=== PATIENT | male | born 1980 | race Caucasian/White ===

== ENCOUNTER 2019-03-02 17:51 | Inpatient (IN) | payer OTHER | END 2019-03-07 14:43 | disposition home or self-care (01) | LOC: YASAS 17:51 → Y6N 21:16 ==

== ENCOUNTER 2019-03-07 15:14 | Inpatient (IN) | payer OTHER ==
[2019-03-07] MEDS ORDERED: MENTHOL/PHENOL 1 EACH UD MM PRN (15:47)
[2019-03-07] MEDS ORDERED: MAGNESIUM CITRATE 300 ML BOTTLE PO PRN (15:47)
[2019-03-07] MEDS ORDERED: P-EPHED 60MG/TRIPROLIDI 2.5MG TABLET PO PRN (15:47)
[2019-03-07] MEDS ORDERED: ACETAMINOPHEN 325 MG TABLET (FP) PO PRN (15:47)
[2019-03-07] MEDS ORDERED: guaiFENesin 200 MG/10 ML 10 ML UNIT-DOSE CUPS PO PRN (15:47)
[2019-03-07] MEDS ORDERED: LOPERAMIDE HCL 2 MG CAPSULE PO PRN (15:47)
[2019-03-07] MEDS ORDERED: MAG HYDROX/AL HYDROX/SIMETH 30 ML UNIT-DOSE CUP PO PRN (15:47)
--- NOTE | 2019-03-07 15:50 | HP ---
YAN[facility] KENDALL Rehab Assess/Revision - Admission History Admitted to Rehab from: [facility] Date of Admission to Rehab: 03/07/2019 - Vital signs Vital Signs: NOTED; STABLE. - Findings Detox History & Physical reviewed: Yes Concur with findings: Yes Comments/Additional Findings: PATIENT'S MEDICAL / MEDICATION HISTORY REVIEWED PRIOR TO DISCHARGE FROM DETOX UNIT. PATIENT HAD CXR DONE EARLIER IN AFTERNOON TODAY FOR POSITIVE QFT/TB TEST RESULT NOTED WHILE ADMTITED FOR DETOX. RESULTS OF CXR PENDING AT THIS TIME. PATIENT WAS DISCHARGED FROM DETOX UNIT TO BE TAKEN OVER TO REHAB UNIT IN STABLE MEDICAL CONDITION. Inpatient Rehab Admission - Rehab Decision to Admit Inpatient rehab admission?: Yes - Initial Determination Are CD services needed?: Yes Free of communicable disease: Yes Not in need of hospitalization: Yes - Rehab Admission Criteria Previous failed treatment: Yes Poor recovery environment: Yes Comorbidities: No Lacks judgement: No Patient is meeting Inpatient Rehab admission criteria:: Yes
[2019-03-07] MEDS: NICOTINE POLACRILEX 2 MG GUM BUC PRN (16:50)
[2019-03-07] MEDS ORDERED: NICOTINE 21 MG/24 HOURS TOPICAL PATCH TD ONE (17:30)
[2019-03-07] MEDS: THIAMINE HCL 100 MG TABLET (FP) PO SCH (21:43)
[2019-03-07] MEDS: MELATONIN 5 MG TABLETS PO PRN (21:44)
[2019-03-08] MEDS: NICOTINE 21 MG/24 HOURS TOPICAL PATCH TD SCH (10:22)
[2019-03-08] MEDS: PRENATAL VITAMINS W/ FOLIC ACID TABLET (FP) PO SCH (10:22)
[2019-03-08] MEDS: MAGNESIUM HYDROX 2400MG/30ML ORAL SUSPENSION 30 ML CUP PO PRN ×2 (13:20→17:14)
[2019-03-08] MEDS: IBUPROFEN 400 MG TABLET (FP) PO PRN (17:14)
[2019-03-08] MEDS: MELATONIN 5 MG TABLETS PO PRN (21:20)
[2019-03-08] MEDS: THIAMINE HCL 100 MG TABLET (FP) PO SCH (21:20)
[2019-03-09] MEDS: PRENATAL VITAMINS W/ FOLIC ACID TABLET (FP) PO SCH (10:05)
[2019-03-09] MEDS: NICOTINE 21 MG/24 HOURS TOPICAL PATCH TD SCH (10:06)
[2019-03-09] MEDS: MELATONIN 5 MG TABLETS PO PRN (21:41)
[2019-03-09] MEDS: THIAMINE HCL 100 MG TABLET (FP) PO SCH (21:41)
[2019-03-10] MEDS: PRENATAL VITAMINS W/ FOLIC ACID TABLET (FP) PO SCH (09:53)
[2019-03-10] MEDS: NICOTINE 21 MG/24 HOURS TOPICAL PATCH TD SCH (09:53)
[2019-03-10] MEDS: NICOTINE POLACRILEX 2 MG GUM BUC PRN ×2 (09:55→16:42)
[2019-03-10] MEDS: THIAMINE HCL 100 MG TABLET (FP) PO SCH (21:56)
[2019-03-10] MEDS: MELATONIN 5 MG TABLETS PO PRN (21:56)
--- NOTE | 2019-03-11 09:07 | PN ---
[facility] Progress Note Note: Patient c/o sleep disturbance and difficulty falling asleep. Patient currently in rehab for ETOH/Opiod dependence. Vital Signs Temperature 98.2 F 03/11/19 07:27 Pulse Rate 88 03/11/19 07:27 Respiratory Rate 18 03/11/19 07:27 Blood Pressure 118/70 03/11/19 07:27 O2 Sat by Pulse Oximetry (%) Laboratory Tests 03/08/19 03/08/19 06:00 07:00 HIV 1&2 Ag/Ab, 4th Gen Non reactive HIV 1&2 Antibody Screen Cancelled HIV P24 Antigen Cancelled PE alert and oriented x 3 skin warm and dry cranial nerves 1-x11 grossly intact ext full rom, amb ad diandra A/P: sleep disturbance r/t substance use will start trazodone 50mg hs sleep hygiene monitor clinically
[2019-03-11] MEDS: NICOTINE 21 MG/24 HOURS TOPICAL PATCH TD SCH (10:44)
[2019-03-11] MEDS: PRENATAL VITAMINS W/ FOLIC ACID TABLET (FP) PO SCH (10:44)
[2019-03-11] MEDS: NICOTINE POLACRILEX 2 MG GUM BUC PRN (10:44)
[2019-03-11] MEDS: CYCLOBENZAPRINE HCL 10 MG TABLET (FP) PO SCH ×2 (14:48→22:02)
[2019-03-11] MEDS: THIAMINE HCL 100 MG TABLET (FP) PO SCH (22:02)
[2019-03-11] MEDS: traZODone HCL 50 MG TABLET (FP) PO SCH (22:03)
[2019-03-12] MEDS: CYCLOBENZAPRINE HCL 10 MG TABLET (FP) PO SCH ×3 (06:49→21:09)
[2019-03-12] MEDS: PRENATAL VITAMINS W/ FOLIC ACID TABLET (FP) PO SCH (09:09)
[2019-03-12] MEDS: NICOTINE 21 MG/24 HOURS TOPICAL PATCH TD SCH (09:09)
[2019-03-12] MEDS: THIAMINE HCL 100 MG TABLET (FP) PO SCH (21:09)
[2019-03-12] MEDS: traZODone HCL 50 MG TABLET (FP) PO SCH (21:09)
[2019-03-13] MEDS: CYCLOBENZAPRINE HCL 10 MG TABLET (FP) PO SCH ×3 (06:33→21:45)
[2019-03-13] MEDS: PRENATAL VITAMINS W/ FOLIC ACID TABLET (FP) PO SCH (08:59)
[2019-03-13] MEDS: NICOTINE 21 MG/24 HOURS TOPICAL PATCH TD SCH (09:00)
[2019-03-13] MEDS: NICOTINE POLACRILEX 2 MG GUM BUC PRN ×2 (13:38→19:07)
[2019-03-13] MEDS: IBUPROFEN 400 MG TABLET (FP) PO PRN (19:05)
[2019-03-13] MEDS: THIAMINE HCL 100 MG TABLET (FP) PO SCH (21:45)
[2019-03-13] MEDS: traZODone HCL 50 MG TABLET (FP) PO SCH (21:45)
[2019-03-13] MEDS: MELATONIN 5 MG TABLETS PO PRN (21:45)
[2019-03-14] MEDS: CYCLOBENZAPRINE HCL 10 MG TABLET (FP) PO SCH ×3 (06:38→21:04)
--- NOTE | 2019-03-14 10:17 | PN ---
[facility] Progress Note Note: PATIENT TREATED FOR INSOMNIA WITH TRAZODONE 50MG HS. PATIENT STATES HE CONTINUES TO HAVE DIFFICULTY SLEEPING. STATES HE HAD EFFECTIVE TREATMENT WITH SEROQUEL. WILL REFER TO PSYCH AT THIS TIME. Vital Signs Temperature 96.6 F L 03/14/19 07:45 Pulse Rate 83 03/14/19 07:45 Respiratory Rate 18 03/14/19 07:45 Blood Pressure 120/72 03/14/19 07:45 O2 Sat by Pulse Oximetry (%) Laboratory Tests 03/08/19 03/08/19 06:00 07:00 HIV 1&2 Ag/Ab, 4th Gen Non reactive HIV 1&2 Antibody Screen Cancelled HIV P24 Antigen Cancelled
[2019-03-14] MEDS: NICOTINE 21 MG/24 HOURS TOPICAL PATCH TD SCH (10:53)
[2019-03-14] MEDS: PRENATAL VITAMINS W/ FOLIC ACID TABLET (FP) PO SCH (10:53)
[2019-03-14] MEDS: IBUPROFEN 600 MG TABLET (FP) PO PRN ×2 (13:34→18:35)
--- NOTE | 2019-03-14 17:11 | CONSULT ---
[facility] Psychiatric Consult - Data Date of interview: 03/14/19 Admission source: Transfer from [address] [place] [address]. Identifying data: Day 7 of rehabilitation for this 38 y/o male ( completed detoxification at [address] [place] [address]). Patient is , a father of three, homeless, unemployed. Undisclosed means of income. Psychiatric consult was requested to address patient's complaint of insomnia. Mr Horowitz is requesting seroquel in lieu of trazodone. Substance Abuse History: Confirmed by patient in this interview. Details in current [facility] report as follows : Smoking history: Current every day smoker. Have you smoked in the past 12 months: Yes. Aproximately how many cigarettes per day: 20. Cigars Per Day: 0. Hx Chewing Tobacco Use: No. Initiated information on smoking cessation: Yes. 'Breaking Loose' booklet given: . - Substance & Tx. History. Hx Alcohol Use: Yes. Hx Substance Use: Yes. Substance Use Type: Alcohol, Cocaine, Heroin. Hx Substance Use Treatment: Yes ( [facility]). - Substances abused. Heroin. Substance route: Inhalation ( INTERMIITENT IVDU). Frequency: Daily. Amount used: 15 bags- 20 BAGS. Age of first use: 38. Date of last use: 03/02/19. Crack. Substance route: Smoking. Frequency: Daily. Amount used: 200 hundred dollars. Age of first use : 22. Date of last use: 03/02/19. Alcohol. Substance route: Oral. Frequency: Daily. Amount used: 6 packs of 24 ounces of beers and 1 pt. liquor. Age of first use: 14. Date of last use: 03/02/19 Medical History: Good physical health as per self-report. Psychiatric History: History of treatment for ADHD during childhood. Used to be on ritalin. Patient denies history of psychiatric hospitalizations. No current OPD care (past follow-up at the [facility] in [facility]). Mr Horowitz denies history of suicide attempts. Physical/Sexual Abuse/Trauma History: Patient declines to discuss this domain. Additional Comment: Urine drug screen results: MARKIE-Cocaine, MOP-Opiates, BZO- Benzodiazepines. Noted on admission. Mental Status Exam - Mental Status Exam Alert and Oriented to: Time, Place, Person Cognitive Function: Good Patient Appearance: Well Groomed Mood: Hopeful, Euthymic Affect: Appropriate, Normal Range Patient Behavior: Cooperative Speech Pattern: Clear, Appropriate Voice Loudness: Normal Thought Process: Intact, Goal Oriented Thought Disorder: Not Present Hallucinations: Denies Suicidal Ideation: Denies Homicidal Ideation: Denies Insight/Judgement: Fair Sleep: Poorly, Difficulty falling asleep Appetite: Good Muscle strength/Tone: Normal Gait/Station: Normal Psychiatric Findings - Problem List ([place] 1, 2,3) (1) Alcohol dependence Current Visit: Yes Status: Chronic (2) Opioid dependence Current Visit: Yes Status: Chronic (3) Cocaine abuse, uncomplicated Current Visit: Yes Status: Chronic (4) Nicotine dependence Current Visit: Yes Status: Chronic Qualifiers: Nicotine product type: cigarettes Substance use status: uncomplicated Qualified Code(s): F17.210 - Nicotine dependence, cigarettes, uncomplicated (5) History of ADHD Current Visit: Yes Status: Chronic (6) Insomnia Current Visit: Yes Status: Chronic - Initial Treatment Plan Initial Treatment Plan: Psychoeducation. Sleep hygiene. Seroquel is started at the dose of 150 mg po hs (patient indicates that he used to be on 300 mg/hs while in [facility]). Side effects/benefits discussed with the patient. Gave consent ( verbal) to MD. Mejias.
[2019-03-14] MEDS: THIAMINE HCL 100 MG TABLET (FP) PO SCH (21:04)
[2019-03-14] MEDS: QUEtiapine FUMARATE 50 MG TABLET PO SCH (21:05)
[2019-03-14] MEDS: NICOTINE POLACRILEX 2 MG GUM BUC PRN (21:06)
[2019-03-14] MEDS: MELATONIN 5 MG TABLETS PO PRN (21:06)
[2019-03-15] MEDS: IBUPROFEN 600 MG TABLET (FP) PO PRN ×4 (01:08→22:08)
[2019-03-15] MEDS: CYCLOBENZAPRINE HCL 10 MG TABLET (FP) PO SCH ×3 (06:09→22:07)
[2019-03-15] MEDS: PRENATAL VITAMINS W/ FOLIC ACID TABLET (FP) PO SCH (09:51)
[2019-03-15] MEDS: NICOTINE 21 MG/24 HOURS TOPICAL PATCH TD SCH (10:09)
[2019-03-15] MEDS: NICOTINE POLACRILEX 2 MG GUM BUC PRN (15:52)
[2019-03-15] MEDS: THIAMINE HCL 100 MG TABLET (FP) PO SCH (22:06)
[2019-03-15] MEDS: MELATONIN 5 MG TABLETS PO PRN (22:06)
[2019-03-15] MEDS: QUEtiapine FUMARATE 50 MG TABLET PO SCH (22:07)
[2019-03-16] MEDS: CYCLOBENZAPRINE HCL 10 MG TABLET (FP) PO SCH ×3 (06:34→21:58)
[2019-03-16] MEDS: IBUPROFEN 600 MG TABLET (FP) PO PRN ×2 (06:34→14:06)
[2019-03-16] MEDS ORDERED: PT OWN MED DRAWER 7, Y5N ONE (08:57)
[2019-03-16] MEDS: PRENATAL VITAMINS W/ FOLIC ACID TABLET (FP) PO SCH (09:51)
[2019-03-16] MEDS: NICOTINE 21 MG/24 HOURS TOPICAL PATCH TD SCH (09:51)
--- NOTE | 2019-03-16 11:16 | PN ---
[facility] Progress Note Note: Pt c/o back pain- on flexeril/motrin/tylenol. d/w pt exercises to release the back, warm compresses and hot showers. Pt agrees to try this
--- NOTE | 2019-03-16 18:16 | PN ---
[facility] Progress Note Note: Psychiatry Attending's note : Met with patient. Mr Lor reports refractory insomnia. Insists on having seroquel dose increased. Seroquel 200 mg po hs. Patient agrees.
[2019-03-16] MEDS: THIAMINE HCL 100 MG TABLET (FP) PO SCH (21:58)
[2019-03-16] MEDS: MELATONIN 5 MG TABLETS PO PRN (21:59)
[2019-03-16] MEDS: QUEtiapine FUMARATE 200 MG TABLET PO SCH (21:59)
[2019-03-16] MEDS: NICOTINE POLACRILEX 2 MG GUM BUC PRN (22:01)
[2019-03-17] MEDS: IBUPROFEN 600 MG TABLET (FP) PO PRN ×3 (00:10→21:09)
[2019-03-17] MEDS: CYCLOBENZAPRINE HCL 10 MG TABLET (FP) PO SCH ×3 (06:25→21:07)
[2019-03-17] MEDS: PRENATAL VITAMINS W/ FOLIC ACID TABLET (FP) PO SCH (09:52)
[2019-03-17] MEDS: NICOTINE 21 MG/24 HOURS TOPICAL PATCH TD SCH (09:54)
--- NOTE | 2019-03-17 12:07 | PN ---
[facility] Progress Note (SOAP) Subjective: Pt is a 38 y/o male admitted to rehab for kem and scheduled to discharge tomorrow after completing treatment. Pt has been referred to [facility] on [address], [place] for CD aftercare. Pt reports he goes to [facility] for medical care. Pt states no specific primary care provider. Pt denies past MHX. Pt reports he is undomiciled and will be going to the half-way today. Denies s/h/i. Objective: 03/17/19 12:02 Vital Signs - 24 hr 03/17/19 03/17/19 03/17/19 00:30 03:30 07:19 Temperature 97.8 F Pulse Rate 67 Respiratory 18 18 18 Rate Blood Pressure 135/83 Laboratory Tests 03/08/19 03/08/19 06:00 07:00 HIV 1&2 Ag/Ab, 4th Gen Non reactive HIV 1&2 Antibody Screen Cancelled HIV P24 Antigen Cancelled Home Medications Medication Instructions Recorded NK [No Known Home Medication] 03/02/19 General:Alert o x 3. NAD. Cardiac:s1 s2, rrr Lungs:cta,rrr Abdomen:Soft,+bs,nt,nd Extremities/Skin:No edema; wnl Assessment: 03/17/19 14:34 Medically stable [facility] Inpatient Services Medical - Diagnosis (1) Alcohol dependence Qualifiers: Substance use status: uncomplicated Qualified Code(s): F10.20 - Alcohol dependence, uncomplicated Current Visit: Yes Status: Chronic (2) Cocaine abuse, uncomplicated Current Visit: Yes Status: Chronic (3) Nicotine dependence Qualifiers: Nicotine product type: cigarettes Substance use status: uncomplicated Qualified Code(s): F17.210 - Nicotine dependence, cigarettes, uncomplicated Current Visit: Yes Status: Chronic (4) Opioid dependence Qualifiers: Substance use status: uncomplicated Qualified Code(s): F11.20 - Opioid dependence, uncomplicated Current Visit: Yes Status: Chronic (5) IVDU (intravenous drug user) Current Visit: No Status: Acute (6) Homeless Current Visit: Yes Status: Chronic Initialized on 03/17/19 14:23 - END OF NOTE Plan: D/c pt tomorrow Follow up with CD aftercare at [facility] as recommended. Follow up with primary care with [place], [place] in 1-2 weeks after discharge.
--- NOTE | 2019-03-17 15:21 | PN ---
[facility] Progress Note Note: Patient is scheduled for discharge tomorrow. Script for 30 days supply of Seroquel 200 mg/hs will be electronically transmitted to [facility] at [address] [place], [place] [id number]
[2019-03-17] MEDS: MELATONIN 5 MG TABLETS PO PRN (21:07)
[2019-03-17] MEDS: QUEtiapine FUMARATE 200 MG TABLET PO SCH (21:07)
[2019-03-17] MEDS: THIAMINE HCL 100 MG TABLET (FP) PO SCH (21:07)
[2019-03-18] MEDS: IBUPROFEN 600 MG TABLET (FP) PO PRN (06:24)
[2019-03-18] MEDS: CYCLOBENZAPRINE HCL 10 MG TABLET (FP) PO SCH (06:25)
[2019-03-18 08:11] VITALS: BP 125/74; PULSE 80; TEMP 98.1
== END 2019-03-18 08:25 | disposition home or self-care (01) | DRG 772 ==
LOC: YASAS 15:14 → Y3W 15:15
PROVIDERS: ADMIT Neuromusculoskeletal Medicine & OMM; ATTEND Neuromusculoskeletal Medicine & OMM
PROC: HZ42ZZZ Group Counseling for Substance Abuse Treatment, Cognitive-Behavioral (ICD-10-PCS; principal; 2019-03-07)
DX: F11.20 Opioid dependence, uncomplicated (principal); F10.20 Alcohol dependence, uncomplicated; F14.10 Cocaine abuse, uncomplicated; F17.210 Nicotine dependence, cigarettes, uncomplicated; G47.00 Insomnia, unspecified; Z59.0 Homelessness
CPT/HCPCS: 36415; 87389

== ENCOUNTER 2019-05-04 17:07 | Inpatient (IN) | payer OTHER ==
[2019-05-04 23:00] VITALS: BMI 25.4
--- NOTE | 2019-05-05 01:56 | HP ---
COWS - Scale Resting Pulse: 0= [place] 80 or Below Sweatin=Flushed/Facial Moisture Restless Observation: 1= Difficult to Sit Still Pupil Size: 1= Pupils >than Normal Bone or Joint Aches: 4=Acute Joint/Muscle Pain Runny Nose/ Eye Tearin= Nasal Congestion GI Upset > 30mins: 2= Nausea/Diarrhea Tremor Observation: 2= Slight Tremor Visible Yawning Observation: 1= 1-2x During Session Anxiety or Irritability: 0= None Goose Flesh Skin: 3=Piloerection COWS Score: 17 CIWA Score Nausea/Vomitin-Mild Nausea/No Vomiting Muscle Tremors: 3 Anxiety: 3 Agitation: 3 Paroxysmal Sweats: 3 Orientation: 0-Oriented Tacttile Disturbances: 0-None Auditory Disturbances: 0-None Visual Disturbances: 0-None Headache: 3-Moderate CIWA-Ar Total Score: 16 - Admission Criteria OASAS Guidelines: Admission for Medically Managed Detox: Requires at least one of the followin. CIWA greater than 12 2. Seizures within the past 24 hours 3. Delirium tremens within the past 24 hours 4. Hallucinations within the past 24 hours 5. Acute intervention needed for co occurring medical disorder 6. Acute intervention needed for co occurring psychiatric disorder 7. Severe withdrawal that cannot be handled at a lower level of care (continued vomiting, continued diarrhea, abnormal vital signs) requiring intravenous medication and/or fluids 8. Admitting History and Physical - Smoking History Smoking history: Current every day smoker Have you smoked in the past 12 months: Yes Aproximately how many cigarettes per day: 20 - Alcohol/Substance Use Hx Alcohol Use: Yes Admission [facility] Chief Complaint: Heroin and alcohol withdrawal symptoms Allergies/Adverse Reactions: Allergies Allergy/AdvReac Type Severity Reaction Status Date / Time No Known Allergies Allergy Verified 05/04/19 23:09 History of Present Illness: 38 years old male with heroin and alcohol withdrawal symptoms is seeking admission to detox. Patient reports daily use of heroin since October this year. He has been to detox but relapsed. Last use was 05/04/2019. Denies suicidal ideation at this time. Patient is unemployed and homeless. Exam Limitations: Clinical Condition - Ebola screening Have you traveled outside of the country in the last 21 days: No (N) Have you had contact with anyone from an Ebola affected area: No Do you have a fever: No - Review of Systems Constitutional: Chills, Loss of Appetite, Malaise, Night Sweats, Changes in sleep EENT: reports: No Symptoms Reported, Nose Congestion Respiratory: reports: No Symptoms reported Cardiac: reports: No Symptoms Reported GI: reports: Poor Appetite, Poor Fluid Intake, Vomiting, Abdominal cramping : reports: No Symptoms Reported Musculoskeletal: reports: Back Pain, Muscle Pain Integumentary: reports: Dryness, Flushing Neuro: reports: Tremors Endocrine: reports: No Symptoms Reported Hematology: reports: No Symptoms Reported Psychiatric: reports: Anxious Other Systems: Reviewed and Negative Patient History - Patient Medical History Hx Anemia: No Hx Asthma: No Hx Chronic Obstructive Pulmonary Disease (COPD): No Hx Cancer: No Hx Cardiac Disorders: No Hx Congestive Heart Failure: No Hx Hypertension: No Hx Hypercholesterolemia: No Hx Pacemaker: No HX Cerebrovascular Accident: No Hx Seizures: No Hx Dementia: No Hx Diabetes: No Hx Gastrointestinal Disorders: No Hx Liver Disease: No Hx Genitourinary Disorders: No Hx Sexually Transmitted Disorders: No Hx Renal Disease (ESRD): No Hx Thyroid Disease: No Hx Human Immunodeficiency Virus (HIV): No Hx Hepatitis C: No Hx Depression: No Hx Suicide Attempt: No Hx Bipolar Disorder: No Hx Schizophrenia: No - Patient Surgical History Past Surgical History: No Hx Neurologic Surgery: No Hx Cataract Extraction: No Hx Cardiac Surgery: No Hx Lung Surgery: No Hx Abdominal Surgery: No Hx Appendectomy: No Hx Cholecystectomy: No Hx Genitourinary Surgery: No Hx Orthopedic Surgery: No Anesthesia Reaction: No - PPD History Previous Implant?: No Implanted On Prior [facility] Admission?: No PPD to be Administered?: No - Reproductive History Patient is a Female of Child Bearing Age (11 -55 yrs old): No (male) - Smoking Cessation Smoking history: Current every day smoker Have you smoked in the past 12 months: Yes Aproximately how many cigarettes per day: 20 Cigars Per Day: 0 Hx Chewing Tobacco Use: No Initiated information on smoking cessation: Yes 'Breaking Loose' booklet given: 05/05/19 - Substance & Tx. History Hx Alcohol Use: Yes Hx Substance Use: Yes Substance Use Type: Alcohol, Cocaine, Heroin, Marijuana, Opiates Hx Substance Use Treatment: Yes ([facility]) - Substances abused Heroin Substance route: Inhalation Frequency: Daily Amount used: 15 bags- 20 BAGS Age of first use: 38 Date of last use: 05/04/19 Crack Substance route: Smoking Frequency: Daily Amount used: 200 hundred dollars Age of first use: 22 Date of last use: 05/04/19 Alcohol Substance route: Oral Frequency: Daily Amount used: 6 packs of 24 ounces of beers and 1 pt. liquor Age of first use: 14 Date of last use: 05/04/19 Admission Physical Exam [facility] - Vital Signs Vital Signs: Vital Signs - 24 hr 05/04/19 22:53 Temperature 97.6 F Pulse Rate 80 Respiratory 18 Rate Blood Pressure 133/66 - Physical General Appearance: Yes: Moderate Distress, Tremorous, Irritable, Anxious HEENTM: Yes: Within Normal Limits Respiratory: Yes: Lungs Clear, Normal Breath Sounds, No Respiratory Distress Neck: Yes: Supple Breast: Yes: Breast Exam Deferred Cardiology: Yes: Regular Rhythm, Regular Rate Abdominal: Yes: Normal Bowel Sounds Genitourinary: Yes: Within Normal Limits Back: Yes: Normal Inspection Musculoskeletal: Yes: Within Normal Limits Extremities: Yes: Normal Inspection Neurological: Yes: Alert, Normal Mood/Affect Integumentary: Yes: Warm Lymphatic: Yes: Within Normal Limits - Diagnostic (1) Alcohol dependence with uncomplicated withdrawal Current Visit: Yes Status: Chronic (2) Nicotine dependence Current Visit: Yes Status: Chronic Qualifiers: Nicotine product type: cigarettes Substance use status: uncomplicated Qualified Code(s): F17.210 - Nicotine dependence, cigarettes, uncomplicated (3) Opioid dependence with withdrawal Current Visit: Yes Status: Acute (4) Marijuana dependence Current Visit: Yes Status: Acute (5) Cocaine dependence Current Visit: Yes Status: Acute (6) IVDU (intravenous drug user) Current Visit: No Status: Acute (7) Homeless Current Visit: No Status: Chronic Cleared for Admission [facility] - Detox or Rehab [facility] Level of Care: Medically Managed Detox Regimen/Protocol: Methadone/Librium Breathalyzer - Breathalyzer Breathalyzer: 0 Urine Drug Screen - Test Device Lot number: [id number] Expiration date: 11/30/20 - Control Is test valid?: Yes - Results Drug screen NEGATIVE: No Urine drug screen results: MARKIE-Cocaine, MOP-Opiates, BZO-Benzodiazepines Inpatient Rehab Admission - Rehab Decision to Admit Inpatient rehab admission?: No
[2019-05-05] MEDS ORDERED: MAGNESIUM CITRATE 300 ML BOTTLE PO PRN (02:16)
[2019-05-05] MEDS ORDERED: METHADONE HCL 10 MG TABLET (FOR DETOX USE ONLY) PO ONE (02:16)
[2019-05-05] MEDS ORDERED: MENTHOL/PHENOL 1 EACH UD MM PRN (02:16)
[2019-05-05] MEDS ORDERED: BISMUTH SUBSALICYLATE 524 MG/30 ML UD PO PRN (02:16)
[2019-05-05] MEDS ORDERED: MAGNESIUM HYDROX 2400MG/30ML ORAL SUSPENSION 30 ML CUP PO PRN (02:16)
[2019-05-05] MEDS ORDERED: ACETAMINOPHEN 325 MG TABLET (FP) PO PRN (02:16)
[2019-05-05] MEDS ORDERED: MAG HYDROX/AL HYDROX/SIMETH 30 ML UNIT-DOSE CUP PO PRN (02:16)
[2019-05-05] MEDS: chlordiazePOXIDE HCL 25 MG CAPSULE PO SCH ×4 (07:22→22:31)
[2019-05-05] MEDS: NICOTINE 14 MG/24 HOURS TOPICAL PATCH TD SCH (11:14)
[2019-05-05] MEDS: NICOTINE POLACRILEX 2 MG GUM BUC PRN (11:15)
[2019-05-05] MEDS: PRENATAL VITAMINS W/ FOLIC ACID TABLET (FP) PO SCH (11:15)
[2019-05-05] MEDS: hydrOXYzine PAMOATE 25 MG CAPSULE (FP) PO PRN (11:18)
[2019-05-05] MEDS: METHOCARBAMOL 500 MG TABLET PO PRN (11:18)
--- NOTE | 2019-05-05 13:38 | PN ---
[facility] CIWA - CIWA Score Nausea/Vomitin-No Nausea/No Vomiting Muscle Tremors: 3 Anxiety: 3 Agitation: 3 Paroxysmal Sweats: 3 Orientation: 0-Oriented Tacttile Disturbances: 0-None Auditory Disturbances: 0-None Visual Disturbances: 0-None Headache: 0-None Present CIWA-Ar Total Score: 12 [facility] COWS - Scale Resting Pulse: 0= [place] 80 or Below Sweatin= Chills/Flushing Restless Observation: 1= Difficult to Sit Still Pupil Size: 0= Normal to Room Light Bone or Joint Aches: 1= Mild Discomfort Runny Nose/ Eye Tearin= Runny Nose/Eyes GI Upset > 30mins: 0= None Tremor Observation of Outstretched Hands: 2= Slight Tremor Visible Yawning Observation: 2= >3x During Session Anxiety or Irritability: 2=Irritable/Anxious Goose Flesh Skin: 0=Smooth Skin COWS Score: 11 [facility] Progress Note (SOAP) Subjective: sweats shakes body aches irritable agitation tired Objective: 05/05/19 13:37 Vital Signs Temperature 97.5 F L 05/05/19 09:59 Pulse Rate 53 L 05/05/19 09:59 Respiratory Rate 18 05/05/19 09:59 Blood Pressure 107/56 L 05/05/19 09:59 O2 Sat by Pulse Oximetry (%) labs pending aaox3 ambulating no acute distress Assessment: 05/05/19 13:38 withdrawals sx Plan: continue detox pending labs
--- NOTE | 2019-05-05 14:36 | EKG ---
Test Reason : Blood Pressure : / mmHG Vent. Rate : 066 BPM Atrial Rate : 066 BPM P-R Int : 128 ms QRS Dur : 100 ms QT Int : 414 ms P-R-T Axes : 023 -07 -02 degrees QTc Int : 434 ms NORMAL SINUS RHYTHM WITH SINUS ARRHYTHMIA MODERATE VOLTAGE CRITERIA FOR LVH, MAY BE NORMAL VARIANT INFERIOR INFARCT , AGE UNDETERMINED ABNORMAL ECG WHEN COMPARED WITH ECG OF 02-MAR-2019 21:27, INFERIOR INFARCT IS NOW PRESENT INVERTED T WAVES HAVE REPLACED NONSPECIFIC T WAVE ABNORMALITY IN INFERIOR LEADS Confirmed by ASAF KENDALL, MAL ([id number]) on 05/05/2019 2:35:54 PM Referred By: Confirmed By:MAL RON MD
[2019-05-05] MEDS: cloNIDine HCL 0.1 MG TABLET PO PRN (20:06)
[2019-05-05] MEDS: chlordiazePOXIDE HCL 25 MG CAPSULE PO PRN (20:06)
[2019-05-05] MEDS: THIAMINE HCL 100 MG TABLET (FP) PO SCH (22:31)
[2019-05-05] MEDS: MELATONIN 5 MG TABLETS PO PRN (22:31)
[2019-05-06] MEDS: chlordiazePOXIDE HCL 25 MG CAPSULE PO SCH ×4 (06:57→23:30)
[2019-05-06] MEDS: METHOCARBAMOL 500 MG TABLET PO PRN ×2 (06:57→15:21)
[2019-05-06] MEDS: NICOTINE POLACRILEX 2 MG GUM BUC PRN ×2 (06:57→10:17)
[2019-05-06] MEDS ORDERED: METHADONE HCL 10 MG TABLET (FOR DETOX USE ONLY) ONE (09:17)
[2019-05-06] MEDS ORDERED: METHADONE HCL 5 MG TABLET (FOR DETOX USE ONLY) ONE (09:18)
[2019-05-06] MEDS ORDERED: METHADONE (DETOX) 20 MG, METHADONE (DETOX) 5 MG PO ONE (10:00)
[2019-05-06] MEDS: NICOTINE 14 MG/24 HOURS TOPICAL PATCH TD SCH (10:16)
[2019-05-06] MEDS: PRENATAL VITAMINS W/ FOLIC ACID TABLET (FP) PO SCH (10:16)
[2019-05-06 10:34] LABS: HEMATOCRIT 35.3 % (35.4-49); HEMOGLOBIN 11.9 GM/dL (11.7-16.9); MCH 33.2 pg (25.7-33.7); MCHC 33.8 g/dl (32.0-35.9); MEAN CELL VOLUME 98.4 fl (80-96); MEAN PLT VOLUME 8.8 fl (7.5-11.1); PLATELET COUNT 265 K/MM3 (134-434); RBC 3.59 M/mm3 (4.00-5.60); RDW 12.9 % (11.9-15.9); WHITE BLOOD COUNT 5.7 K/mm3 (4.0-10.0)
[2019-05-06 10:42] LABS: ALBUMIN 2.9 g/dl (3.4-5.0); BILIRUBIN,TOTAL 0.3 mg/dL (0.2-1); BLOOD UREA NITROGEN 13.1 mg/dL (7-18); CREATININE 0.9 mg/dL (0.55-1.3); POTASSIUM 4.6 mmol/L (3.5-5.1); TOT PROT 6.8 g/dl (6.4-8.2)
--- NOTE | 2019-05-06 11:16 | PN ---
[facility] CIWA - CIWA Score Nausea/Vomitin-No Nausea/No Vomiting Muscle Tremors: 3 Anxiety: 2 Agitation: 2 Paroxysmal Sweats: 3 Orientation: 0-Oriented Tacttile Disturbances: 0-None Auditory Disturbances: 0-None Visual Disturbances: 0-None Headache: 0-None Present CIWA-Ar Total Score: 10 [facility] COWS - Scale Resting Pulse: 0= [place] 80 or Below Sweatin= Chills/Flushing Restless Observation: 1= Difficult to Sit Still Pupil Size: 0= Normal to Room Light Bone or Joint Aches: 1= Mild Discomfort Runny Nose/ Eye Tearin= Nasal Congestion GI Upset > 30mins: 0= None Tremor Observation of Outstretched Hands: 1= Tremor [place], Not Seen Yawning Observation: 1= 1-2x During Session Anxiety or Irritability: 1=Feels Anxious/Irritable Goose Flesh Skin: 0=Smooth Skin COWS Score: 7 S Progress Note (SOAP) Subjective: sweats shakes interrupted sleep body aches irritable Objective: 05/06/19 11:15 Vital Signs Temperature 97.7 F 05/06/19 10:23 Pulse Rate 67 05/06/19 10:23 Respiratory Rate 18 05/06/19 10:23 Blood Pressure 103/67 05/06/19 10:23 O2 Sat by Pulse Oximetry (%) Laboratory Tests 05/06/19 05/06/19 08:00 08:00 WBC 5.7 RBC 3.59 L Hgb 11.9 Hct 35.3 L MCV 98.4 H MCH 33.2 MCHC 33.8 RDW 12.9 Plt Count 265 MPV 8.8 Sodium 142 Potassium 4.6 Chloride 108 H Carbon Dioxide 29 Anion Gap 5 L BUN 13.1 Creatinine 0.9 Est GFR (CKD-EPI)AfAm 124.26 Est GFR (CKD-EPI)NonAf 107.21 Random Glucose 98 Calcium 9.0 Total Bilirubin 0.3 AST 15 ALT 24 Alkaline Phosphatase 87 Total Protein 6.8 Albumin 2.9 L labs noted aaox3 ambulating no acute distress Assessment: 05/06/19 11:16 withdrawals Plan: continue detox increase fluids
[2019-05-06] MEDS: IBUPROFEN 400 MG TABLET (FP) PO PRN (11:42)
[2019-05-06] MEDS: hydrOXYzine PAMOATE 25 MG CAPSULE (FP) PO PRN ×2 (11:43→17:06)
[2019-05-06] MEDS: ACETAMINOPHEN 325 MG TABLET (FP) PO PRN (15:20)
[2019-05-06] MEDS: chlordiazePOXIDE HCL 25 MG CAPSULE PO PRN (19:16)
[2019-05-06] MEDS: THIAMINE HCL 100 MG TABLET (FP) PO SCH (21:03)
[2019-05-07] MEDS ORDERED: chlordiazePOXIDE HCL 10 MG CAPSULE PO PRN
[2019-05-07] MEDS: chlordiazePOXIDE HCL 10 MG CAPSULE PO SCH ×4 (06:10→22:48)
[2019-05-07] MEDS: hydrOXYzine PAMOATE 25 MG CAPSULE (FP) PO PRN ×2 (06:13→17:55)
[2019-05-07] MEDS: METHOCARBAMOL 500 MG TABLET PO PRN (06:13)
[2019-05-07] MEDS: cloNIDine HCL 0.1 MG TABLET PO PRN ×3 (09:20→22:49)
[2019-05-07] MEDS ORDERED: METHADONE HCL 10 MG TABLET (FOR DETOX USE ONLY) PO ONE (10:00)
[2019-05-07] MEDS: PRENATAL VITAMINS W/ FOLIC ACID TABLET (FP) PO SCH (10:51)
[2019-05-07] MEDS: NICOTINE 14 MG/24 HOURS TOPICAL PATCH TD SCH (10:52)
[2019-05-07] MEDS: IBUPROFEN 400 MG TABLET (FP) PO PRN ×2 (10:53→22:49)
--- NOTE | 2019-05-07 14:31 | PN ---
[facility] CIWA - CIWA Score Nausea/Vomitin-No Nausea/No Vomiting Muscle Tremors: None Anxiety: 3 Agitation: 1-Slight > Activity Paroxysmal Sweats: 3 Orientation: 0-Oriented Tacttile Disturbances: 0-None Auditory Disturbances: 0-None Visual Disturbances: 0-None Headache: 0-None Present CIWA-Ar Total Score: 7 [facility] COWS - Scale Resting Pulse: 0= [place] 80 or Below Sweatin= Chills/Flushing Restless Observation: 1= Difficult to Sit Still Pupil Size: 0= Normal to Room Light Bone or Joint Aches: 2= Severe Diffuse Aches Runny Nose/ Eye Tearin= None GI Upset > 30mins: 0= None Tremor Observation of Outstretched Hands: 0= None Yawning Observation: 1= 1-2x During Session Anxiety or Irritability: 2=Irritable/Anxious Goose Flesh Skin: 0=Smooth Skin COWS Score: 7 [facility] Progress Note (SOAP) Subjective: c/o sweats, anxiety, muscle aches, and interrupted sleep. Objective: 05/07/19 14:31 Vital Signs 05/07/19 05/07/19 09:51 13:56 Temperature 98.2 F 97.9 F Pulse Rate 71 115 H Respiratory 18 18 Rate Blood Pressure 123/72 108/60 Lab Results WBC 5.7 K/mm3 (4.0-10.0) 05/06/19 08:00 RBC 3.59 M/mm3 (4.00-5.60) L 05/06/19 08:00 Hgb 11.9 GM/dL (11.7-16.9) 05/06/19 08:00 Hct 35.3 % (35.4-49) L 05/06/19 08:00 MCV 98.4 fl (80-96) H 05/06/19 08:00 MCHC 33.8 g/dl (32.0-35.9) 05/06/19 08:00 RDW 12.9 % (11.9-15.9) 05/06/19 08:00 Plt Count 265 K/MM3 (134-434) 05/06/19 08:00 Sodium 142 mmol/L (136-145) 05/06/19 08:00 Potassium 4.6 mmol/L (3.5-5.1) 05/06/19 08:00 Chloride 108 mmol/L (98-107) H 05/06/19 08:00 Carbon Dioxide 29 mmol/L (21-32) 05/06/19 08:00 Anion Gap 5 MMOL/L (8-16) L 05/06/19 08:00 BUN 13.1 mg/dL (7-18) 05/06/19 08:00 Creatinine 0.9 mg/dL (0.55-1.3) 05/06/19 08:00 Random Glucose 98 mg/dL (74-106) 05/06/19 08:00 Calcium 9.0 mg/dL (8.5-10.1) 05/06/19 08:00 Labs noted. Assessment: 05/07/19 14:32 AOX3, in no acute respiratory distress. Full ROM, ambulating in the unit. Withdrawal symptoms. Plan: continue detox.
--- NOTE | 2019-05-07 16:33 | CONSULT ---
[facility] Psychiatric Consult - Data Date of interview: 05/07/19 Admission source: [facility] Identifying data: Patient is a 38 year old single male, father of three, unemployed, homeless, and is supports himself by working as a free [employer]. This is one of multiple admissions for patient. Patient admitted to for alcohol, opiate and cocaine dependence. Substance Abuse History: Smoking Cessation. Smoking history: Current every day smoker. Have you smoked in the past 12 months: Yes. Aproximately how many cigarettes per day: 20. Cigars Per Day: 0. Hx Chewing Tobacco Use: No. Initiated information on smoking cessation: Yes. 'Breaking Loose' booklet given : 05/05/19. - Substance & Tx. History. Hx Alcohol Use: Yes. Hx Substance Use : Yes. Substance Use Type: Alcohol, Cocaine, Heroin, Marijuana, Opiates. Hx Substance Use Treatment: Yes ([facility] - Substances abused. Heroin. Substance route: Inhalation. Frequency: Daily. Amount used: 15 bags- 20 BAGS. Age of first use: 38. Date of last use: 05/04/19. Crack. Substance route : Smoking. Frequency: Daily. Amount used: 200 hundred dollars. Age of first use: 22. Date of last use: 05/04/19. Alcohol. Substance route: Oral. Frequency: Daily. Amount used: 6 packs of 24 ounces of beers and 1 pt. liquor. Age of first use: 14. Date of last use: 05/04/19 Medical History: denies. Psychiatric History: Patient denies history of psychiatric hospitalizations and suicide attempt. He reports past treatment psychiatric treatment that begun at 5 years of age due to his history of ADHD. Reports taking Ritalin for ADHD. Mr. Horowitz most recent outpatient psychiatric care was provided by [facility] in [facility]. Patient reports history of accepting seroquel 300mg while incarcerated. Patient admitted to on 03/14 and was seen by Dr. Carter and ordered seroquel 150mg. Medication was then titrated to 200mg due to refractory insomnia. At present patient reports stable mood but is experiencing difficulty sleeping. Physical/Sexual Abuse/Trauma History: denies. Mental Status Exam - Mental Status Exam Alert and Oriented to: Time, Place, Person Cognitive Function: Good Patient Appearance: Well Groomed Mood: Euthymic Affect: Mood Congruent Patient Behavior: Cooperative Speech Pattern: Appropriate Voice Loudness: Normal Thought Process: Goal Oriented Thought Disorder: Not Present Hallucinations: Denies Suicidal Ideation: Denies Homicidal Ideation: Denies Insight/Judgement: Poor Sleep: Poorly Appetite: Fair Muscle strength/Tone: Normal Gait/Station: Normal Psychiatric Findings - Problem List ([place] 1, 2,3) (1) Substance-induced sleep disorder Current Visit: Yes Status: Acute (2) Cocaine dependence Current Visit: Yes Status: Acute (3) Marijuana dependence Current Visit: Yes Status: Acute (4) Opioid dependence with withdrawal Current Visit: Yes Status: Acute (5) Alcohol dependence with uncomplicated withdrawal Current Visit: Yes Status: Acute (6) History of ADHD Current Visit: No Status: Chronic - Initial Treatment Plan Initial Treatment Plan: Psychoeducation provided. Detoxification in progress. Will order Seroquel 150mg HS. Benefits and side effects discussed. Verbal consent given.
[2019-05-07] MEDS: ACETAMINOPHEN 325 MG TABLET (FP) PO PRN (17:56)
[2019-05-07] MEDS: NICOTINE POLACRILEX 2 MG GUM BUC PRN (18:13)
[2019-05-07] MEDS: QUEtiapine FUMARATE 50 MG TABLET PO SCH (22:47)
[2019-05-07] MEDS: THIAMINE HCL 100 MG TABLET (FP) PO SCH (22:48)
[2019-05-07] MEDS: MELATONIN 5 MG TABLETS PO PRN (22:48)
--- NOTE | 2019-05-08 00:51 | PN ---
[facility] Progress Note Note: ASKED TO SEE PATIENT FOR LEFT 2ND TOE NAIL AVULSION. CLIENT REPORTS STUBBING HIS TOE. DENIES PAIN, SWELLING, BLEEDING Vital Signs - 24 hr 05/07/19 Temperature 97.8 F Pulse Rate 91 H Respiratory 18 Rate Blood Pressure 128/70 SEEN LYING IN BED NAD. A/O X3 LEFT FOOT 2ND DIGIT TOE WITH PARTIAL NAIL AVULSION. PINK MOIST NAIL BED. NO SWELLING, BLEEDING OR CONTUSION NOTED.TOE WITH ROM W/O PAIN OR LIMITED ROM. A- LEFT 2ND TOE NAIL AVULSION P- CLEAN NAIL BED DAILY WITH NS AND APPLY BACITRACIN AND COVER WITH BANDAGE DAILY. MONITOR FOR S/SX OF INFECTION
[2019-05-08] MEDS: chlordiazePOXIDE HCL 10 MG CAPSULE PO SCH ×2 (06:50→17:16)
[2019-05-08] MEDS ORDERED: METHADONE HCL 10 MG TABLET (FOR DETOX USE ONLY) ONE (09:16)
[2019-05-08] MEDS ORDERED: METHADONE HCL 5 MG TABLET (FOR DETOX USE ONLY) ONE (09:16)
[2019-05-08] MEDS ORDERED: METHADONE (DETOX) 10 MG, METHADONE (DETOX) 5 MG PO ONE (10:00)
[2019-05-08] MEDS: PRENATAL VITAMINS W/ FOLIC ACID TABLET (FP) PO SCH (10:49)
[2019-05-08] MEDS: NICOTINE 14 MG/24 HOURS TOPICAL PATCH TD SCH (10:51)
[2019-05-08] MEDS: BACITRACIN 15 GM TUBE TOPICAL OINTMENT TP SCH (10:51)
[2019-05-08] MEDS: hydrOXYzine PAMOATE 25 MG CAPSULE (FP) PO PRN ×2 (10:52→22:37)
[2019-05-08] MEDS: METHOCARBAMOL 500 MG TABLET PO PRN ×2 (10:52→17:16)
[2019-05-08] MEDS: IBUPROFEN 400 MG TABLET (FP) PO PRN ×2 (12:52→22:37)
--- NOTE | 2019-05-08 14:31 | PN ---
[facility] CIWA - CIWA Score Nausea/Vomitin-Mild Nausea/No Vomiting Muscle Tremors: 2 Anxiety: 2 Agitation: 0-Normal Activity Paroxysmal Sweats: 2 Orientation: 0-Oriented Tacttile Disturbances: 1-Very Mild Itch/Numbness Auditory Disturbances: 0-None Visual Disturbances: 0-None Headache: 0-None Present CIWA-Ar Total Score: 8 S COWS - Scale Resting Pulse: 0= [place] 80 or Below Sweatin=Flushed/Facial Moisture Restless Observation: 0= Sits Still Pupil Size: 0= Normal to Room Light Bone or Joint Aches: 1= Mild Discomfort Runny Nose/ Eye Tearin= Nasal Congestion GI Upset > 30mins: 0= None Tremor Observation of Outstretched Hands: 1= Tremor [place], Not Seen Yawning Observation: 1= 1-2x During Session Anxiety or Irritability: 0= None Goose Flesh Skin: 0=Smooth Skin COWS Score: 6 BHS Progress Note (SOAP) Subjective: dry itchy skin Objective: 05/08/19 14:32 a & o x 3 gait steady Vital Signs Temperature 98.1 F 05/08/19 13:19 Pulse Rate 92 H 05/08/19 13:19 Respiratory Rate 18 05/08/19 13:19 Blood Pressure 111/54 L 05/08/19 13:19 O2 Sat by Pulse Oximetry (%) Assessment: 05/08/19 14:33 withdrawal sx xrosis cutis Plan: continue detox ammonium lactate body lotion daily
[2019-05-08] MEDS ORDERED: AMMONIUM LACTATE 12% LOTION 225 GM BOTTLE TP PRN (14:35)
[2019-05-08] MEDS ORDERED: COLLOIDAL OATMEAL 1 BAR EACH TP PRN (14:53)
[2019-05-08] MEDS: THIAMINE HCL 100 MG TABLET (FP) PO SCH (22:36)
[2019-05-08] MEDS: QUEtiapine FUMARATE 50 MG TABLET PO SCH (22:36)
[2019-05-08] MEDS: NICOTINE POLACRILEX 2 MG GUM BUC PRN (22:39)
[2019-05-09] MEDS ORDERED: chlordiazePOXIDE HCL 10 MG CAPSULE PO ONE (05:00)
[2019-05-09] MEDS: IBUPROFEN 400 MG TABLET (FP) PO PRN (07:10)
[2019-05-09] MEDS ORDERED: METHADONE HCL 10 MG TABLET (FOR DETOX USE ONLY) PO ONE (10:00)
[2019-05-09] MEDS: PRENATAL VITAMINS W/ FOLIC ACID TABLET (FP) PO SCH (10:16)
[2019-05-09] MEDS: METHOCARBAMOL 500 MG TABLET PO PRN (10:16)
[2019-05-09] MEDS: NICOTINE 14 MG/24 HOURS TOPICAL PATCH TD SCH (10:16)
[2019-05-09] MEDS: ACETAMINOPHEN 325 MG TABLET (FP) PO PRN (10:17)
[2019-05-09] MEDS: BACITRACIN 15 GM TUBE TOPICAL OINTMENT TP SCH (10:18)
--- NOTE | 2019-05-09 10:41 | PN ---
[facility] CIWA - CIWA Score Nausea/Vomitin-No Nausea/No Vomiting Muscle Tremors: 1-None Visible, but [place]set Anxiety: 1-Mildly Anxious Agitation: 1-Slight > Activity Paroxysmal Sweats: No Perspiration Orientation: 0-Oriented Tacttile Disturbances: 0-None Auditory Disturbances: 0-None Visual Disturbances: 0-None Headache: 0-None Present CIWA-Ar Total Score: 3 BHS COWS - Scale Resting Pulse: 1= [place] 81-100 Sweatin= No chills or Flushing Restless Observation: 1= Difficult to Sit Still Pupil Size: 0= Normal to Room Light Bone or Joint Aches: 1= Mild Discomfort Runny Nose/ Eye Tearin= Nasal Congestion GI Upset > 30mins: 0= None Tremor Observation of Outstretched Hands: 1= Tremor [place], Not Seen Yawning Observation: 0= None Anxiety or Irritability: 1=Feels Anxious/Irritable Goose Flesh Skin: 0=Smooth Skin COWS Score: 6 S Progress Note (SOAP) Subjective: agitation sweats body aches Objective: 05/09/19 10:40 Vital Signs Temperature 97.7 F 05/09/19 09:19 Pulse Rate 91 H 05/09/19 09:19 Respiratory Rate 18 05/09/19 09:19 Blood Pressure 101/62 05/09/19 09:19 O2 Sat by Pulse Oximetry (%) aaox3 ambulating no acute distress Assessment: 05/09/19 10:41 mild withdrawals Plan: continue detox d/c in am
[2019-05-09] MEDS: hydrOXYzine PAMOATE 25 MG CAPSULE (FP) PO PRN (12:41)
[2019-05-09 13:00] VITALS: TEMP 98.2
--- NOTE | 2019-05-09 16:52 | PN ---
[facility] Progress Note Note: Patient requesting to be discharged this evening instead of in am. States family emergency has occurred. Stressors r/t emergencies can increase risk of alcohol and illicit substance use and increase risk of overdose. Patient aware of overdose risks and prevention. Patient encouraged to consider rehab. CIWA: Nausea/Vomitin-No Nausea/No Vomiting Muscle Tremors: 0 Anxiety: 1 Agitation: 1 Paroxysmal Sweats: 0 CIWA-AR Total Score = 2 COWS: Resting Pulse: 1 Sweatin Restless Observation: 1 Runny Nose/ Eye Tearin Tremor Observation of Outstretched Hands: 0 Anxiety or Irritability: 1 COWS Total Score = 3 Vital Signs 05/09/19 05/09/19 13:00 16:54 Temperature 98.2 F 98.2 F Pulse Rate 94 H 99 H Respiratory 18 18 Rate Blood Pressure 118/66 119/66 Patient alert and oriented, w/ steady gait. Patient agreed to receiving prescriptions for Narcan and has others who are aware of how to use. Patient also agrees to continued smoking cessation and will accept NRT. Meds sent to patient's home pharmacy. Patient's discharge orders completed.
[2019-05-09 16:55] VITALS: BP 119/66; PULSE 99
--- NOTE | 2019-05-09 17:47 | DS ---
[facility] Detox Discharge Summary Admission Date: 05/05/19 Discharge Date: 05/09/19 - History Present History: Alcohol Dependence, Cocaine Dependence, Opioid Dependence Additional Comments: Patient presented w/ c/o alcohol and heroin withdrawal symptoms seeking detox. Patient w/ additional cocaine and nicotine use disorder. Pertinent Past History: Patient use drugs via IV route. - Physical Exam Results Vital Signs: Vital Signs Temperature 98.2 F 05/09/19 16:54 Pulse Rate 99 H 05/09/19 16:54 Respiratory Rate 18 05/09/19 16:54 Blood Pressure 119/66 05/09/19 16:54 O2 Sat by Pulse Oximetry (%) Pertinent Admission Physical Exam Findings: Patient admitted w/ opioid and alcohol withdrawal symptoms and admitted to detox. Patient tolerated detox. Laboratory Last Values WBC 5.7 K/mm3 (4.0-10.0) 05/06/19 08:00 RBC 3.59 M/mm3 (4.00-5.60) L 05/06/19 08:00 Hgb 11.9 GM/dL (11.7-16.9) 05/06/19 08:00 Hct 35.3 % (35.4-49) L 05/06/19 08:00 MCV 98.4 fl (80-96) H 05/06/19 08:00 MCH 33.2 pg (25.7-33.7) 05/06/19 08:00 MCHC 33.8 g/dl (32.0-35.9) 05/06/19 08:00 RDW 12.9 % (11.9-15.9) 05/06/19 08:00 Plt Count 265 K/MM3 (134-434) 05/06/19 08:00 MPV 8.8 fl (7.5-11.1) 05/06/19 08:00 Sodium 142 mmol/L (136-145) 05/06/19 08:00 Potassium 4.6 mmol/L (3.5-5.1) 05/06/19 08:00 Chloride 108 mmol/L (98-107) H 05/06/19 08:00 Carbon Dioxide 29 mmol/L (21-32) 05/06/19 08:00 Anion Gap 5 MMOL/L (8-16) L 05/06/19 08:00 BUN 13.1 mg/dL (7-18) 05/06/19 08:00 Creatinine 0.9 mg/dL (0.55-1.3) 05/06/19 08:00 Est GFR (CKD-EPI)AfAm 124.26 05/06/19 08:00 Est GFR (CKD-EPI)NonAf 107.21 05/06/19 08:00 POC Glucometer 147 UNITS (80-120) 05/08/19 16:34 Random Glucose 98 mg/dL (74-106) 05/06/19 08:00 Calcium 9.0 mg/dL (8.5-10.1) 05/06/19 08:00 Total Bilirubin 0.3 mg/dL (0.2-1) 05/06/19 08:00 AST 15 U/L (15-37) 05/06/19 08:00 ALT 24 U/L (13-61) 05/06/19 08:00 Alkaline Phosphatase 87 U/L (45-117) 05/06/19 08:00 Total Protein 6.8 g/dl (6.4-8.2) 05/06/19 08:00 Albumin 2.9 g/dl (3.4-5.0) L 05/06/19 08:00 RPR Titer Nonreactive (NONREACTIVE) 05/06/19 08:00 Labs were reviewd w/ patient. - Treatment Hospital Course: Detox Protocol Followed, Detoxed Safely, Responded well, Discharged Condition Good (Patient alert and oriented, w/ steady gait. COWS = 1 for anxiety. Patient agreed to receiving prescriptions for Narcan and NRT in home pharmacy.) - Medication Discharge Medications: Ambulatory Orders Quetiapine Fumarate [Seroquel -] 200 mg PO HS #30 tablet 03/17/19 Naloxone HCl [Narcan] 4 mg NS PRN #2 spray 05/09/19 Nicotine Patch [Nicoderm Patch -] 14 mg TD DAILY #30 patch 05/09/19 Nicotine Polacrilex [Nicorelief -] 2 mg BUC Q2H PRN #90 gum 05/09/19 - Diagnosis (1) Alcohol dependence with uncomplicated withdrawal Current Visit: Yes Status: Acute (2) Cocaine dependence Current Visit: Yes Status: Chronic Qualifiers: Substance use status: uncomplicated Qualified Code(s): F14.20 - Cocaine dependence, uncomplicated (3) Opioid dependence with withdrawal Current Visit: Yes Status: Acute (4) Nicotine dependence Current Visit: Yes Status: Chronic Qualifiers: Nicotine product type: cigarettes Substance use status: uncomplicated Qualified Code(s): F17.210 - Nicotine dependence, cigarettes, uncomplicated (5) IVDU (intravenous drug user) Current Visit: Yes Status: Chronic - AMA Did Patient Leave Against Medical Advice: No
[2019-05-10] MEDS ORDERED: METHADONE HCL 5 MG TABLET (FOR DETOX USE ONLY) PO ONE (06:00)
== END 2019-05-09 17:09 | disposition home or self-care (01) | DRG 773 ==
LOC: YASAS 17:07 → Y6N 05-05 02:16
PROVIDERS: ADMIT Surgery; ATTEND Surgery
PROC: HZ2ZZZZ Detoxification Services for Substance Abuse Treatment (ICD-10-PCS; principal; 2019-05-05)
DX: F11.23 Opioid dependence with withdrawal (principal); F10.230 Alcohol dependence with withdrawal, uncomplicated; F14.20 Cocaine dependence, uncomplicated; F12.20 Cannabis dependence, uncomplicated; F17.210 Nicotine dependence, cigarettes, uncomplicated; F19.282 Other psychoactive substance dependence with psychoactive substance-induced sleep disorder; L85.3 Xerosis cutis; S91.205A Unspecified open wound of left lesser toe(s) with damage to nail, initial encounter; X58.XXXA Exposure to other specified factors, initial encounter; Y93.89 Activity, other specified; Y92.89 Other specified places as the place of occurrence of the external cause; Y99.8 Other external cause status; Z86.59 Personal history of other mental and behavioral disorders; Z59.0 Homelessness
CPT/HCPCS: 36415; 80053; 82962; 85027; 86593; 93005; 93010; J0735